=== PATIENT | female | born 1985 | race Caucasian/White ===

== ENCOUNTER 2022-06-16 14:00 | Inpatient (IN) | payer OTHER, SELFPAY ==
[2022-06-16] VITALS (8 sets, daily range): BP systolic 107–138; BP diastolic 61–79; PULSE 70–86; TEMP 36.5–37; O2SAT 97–98; BMI 26.5
[2022-06-16 13:37] LABS: Hematocrit 34.3 % (37-47); Hemoglobin 11.6 g/dL (12.0-15.0); Mean Corp Hgb Conc 33.8 g/dL (32-36); Mean Corpuscular Hgb 27.2 pg (27.0-32.0); Mean Corpuscular Volume 80.5 fL (81-99); Mean Platelet Vol. 9.7 fl (6.2-12.0); Platelet Count 295 K/mm3 (150-450); RBC Distribution Width CV 13.2 % (11.6-14.6); RBC Distribution Width SD 38.3 fl (35.1-43.9); Red Blood Count 4.26 M/mm3 (4.2-5.4); White Blood Count 9.6 K/mm3 (4.4-11.0)
[2022-06-16 13:42] LABS: ALB/GLOB Ratio 0.5 RATIO (0.9-2.4); AST(SGOT) 228 U/L (15-37); Alanine Aminotransfer ALT/SGPT 324 U/L (13-56); Albumin, Serum 2.4 g/dL (3.2-5.0); Alkaline Phosphatase 232 U/L (45-117); Anion Gap 5 (5-15); BUN 12 mg/dL (7-18); BUN/Creat Ratio 18.3 RATIO (10-20); Calcium,Total 8.7 mg/dL (8.5-10.1); Chloride 104 mmol/L (98-107); Color, Urine Yellow (Yellow); Creatinine, Serum 0.65 mg/dL (0.55-1.02); EST Glomerular Filtration Rate 109 mL/min (>60); Est Glom Filt Rate - Afr Amer 132 mL/min (>60); Estimated Creatinine Clearance 98.98 ml/min; Globulin 4.7 g/dL (2.2-4.2); Glucose 115 mg/dL (74-106); Glucose, Dipstick Normal (Normal); Ketone-Dipstick Negative (Negative); Leukocyte Esterase-Dipstick Negative /ul (Negative); Nitrite-Dipstick Negative (Negative); Occult Blood-Urine Negative /ul (Negative); Protein, Total 7.1 g/dL (6.4-8.2); Protein-Dipstick Negative (Negative); Sodium Level 133 mmol/L (136-145); Urine Bilirubin Dipstick Negative (Negative); Urine Clarity Clear (Clear); Urine Urobilinogen Normal (Normal)
--- NOTE | 2022-06-16 13:48 | US_ITS ---
INDICATION: SUSPECTED CHOLESTASIS EXAMINATION: Ultrasound US Biophysical Profile W/O nonstress TECHNIQUE: Transabdominal pelvic ultrasound was performed. COMPARISON: None. LMP: Unknown. Beta-hCG: Unknown. Provided EGA: None. FINDINGS: INTRAUTERINE GESTATION(s): Single. HEART MOTION is 150 bpm. AMNIOTIC FLUID INDEX (INGRID): 10 BIOPHYSICAL PROFILE (BPP): 88 -- Breathin/2. -- Movement: 2/2. -- Tone: 2/2. --INGRID: 2/2. PRESENTATION: Cephalic PLACENTA: Anterior. There is no placenta previa or abruption. US/Biophysical Prof W/O Non Stres IMPRESSION: Single live intrauterine with a biophysical profile of 8/8. Electronically Signed: Yoanna Ruby MD at 14:47 EST ,
--- NOTE | 2022-06-16 13:58 | HP.PCM.OB_ITS ---
HPI - General General Date of Admission: 06/16/22 Date of Service: 06/16/22 Chief Complaint: Itching all over and concerned she may have cholestasis of HPI Narrative NATALY BROWN, is a 37 F 2 para 1 who presents with the above. She denies any leakage of fluid, bleeding or contractions. The itching has gone on for the past 5 days including her palms and soles and all over her skin and back. She has been reading that cholestasis of can put baby at considerable risk and after consultation with her associate program manager and further consultations by the associate program manager they decided to come in here. The past 2 days she has been very fatigued and feels rather like she does when she has had a history of hypoglycemia. She feels lightheaded rather like she cannot stand up for any length of time and has to sit down and overall generally weak. She has been receiving care with a associate program manager identified as Alexandra Barkley. She has not had any blood work done with this but states it has so far been quite uneventful. Her last resulted in the delivery of a male infant 7 pounds 2 ounces on May 29, 2021. Patient also reports having had what she describes as the flu (no testing was done) very badly around 07 June with nausea and diarrhea but no emesis. Maternal Data Information Final CARLITOS: 07/06/22 Final CARLITOS Source: LMP PFSH PFSH no medical history Home Medications ascorbic acid (vitamin C) 500 mg tablet (Vitamin C) 500 mg PO DAILY 06/16/22 [History Last Taken 06/15/22 21:00] d-mannose 2 gm PO/SL DAILY Check with primary doctor 06/16/22 [History Last Taken 06/15/22 17:00] dandelion root 500 mg capsule 1 mg PO BID 06/16/22 [History Last Taken 06/15/22 21:00] lactobacillus comb no.10 20 billion cell capsule (Probiotic) 30,000 mmu cells PO DAILY 06/16/22 [History Last Taken 06/16/22 07:00] magnesium carb,citrate,oxide (Magnesium Complex) 300 mg PO DAILY 06/16/22 [History Last Taken 06/15/22 21:00] raspberry 1 ea PO BID 06/16/22 [History Last Taken 06/15/22 21:00] zinc acetate 25 mg (zinc) capsule 25 mg PO PRN PRN IMMUNITY 06/16/22 [History Last Taken 06/14/22 21:00] Allergy/AdvReac Type Severity Reaction Status Date / Time No Known Allergies Allergy Verified 06/16/22 13:23 no significant family history (Denies family history of inheritable diseases) no surgical history History 2 Elective abortions Hx Para 1 Spontaneous abortions Hx # Term Pregnancies 1 Ectopic pregnancies Hx # Pregnancies Multiple births # of living children 0 NST FHR Rate Baby A Baseline: 135 Variability:: Moderate Accelerations:: 15 x 15 Decelerations:: None NST Reactive:: Yes FHR Category:: Category I Uterine Activity:: Irregular contractions every 2 to 5 minutes not felt by patient ROS Constitutional Constitutional: Reports as per HPI and increased appetite ENT HEENT: Reports none Cardiovascular Cardiovascular: Reports none Respiratory/Chest Respiratory/Chest: Reports none Gastrointestinal Gastrointestinal: Reports diarrhea and nausea Genitourinary Genitourinary: Reports systems reviewed and no addt'l complaints, except as documented Musculoskeletal Musculoskeletal: Reports muscle weakness Integumentary Integumentary: Reports pruritus Neurologic Neurologic: Reports none Psychiatric Psychiatric: Reports none Endocrine Endocrinology: Reports none Hematologic/Lymphatic Hematologic/Lymphatic: Reports none Vital Signs Vital Signs Vital Signs: 06/16/22 13:17 06/16/22 13:17 Pulse Rate 82 Blood Pressure 120/79 BP Systolic 120 BP Diastolic 79 Weight Weight: 149 lb 14.629 oz Body Mass Index (BMI) 26.5 Physical Exam Const alert, oriented x3, no apparent distress and average body habitus General Appearance: cooperative Orientation / Consciousness: awake, oriented to person, oriented to place and oriented to time Exam Limitations: no limitations HEENT normocephalic Eyes PERRL and EOMs intact bilaterally Neck thyroid normal General: normal visual inspection Resp normal respiratory effort, normal air movement and clear to auscultation bilaterally Cardio regular rate, regular rhythm and no murmurs GI soft to palpation and non-tender GI Narrative: gravid Back/Spine thoracic and lumbar spine normal to inspection and no thoracic nor lumbar tenderness Extremity no calf tenderness and no pedal edema Skin no rashes or lesions noted Skin Narrative: Red straight lines on back suggestive of scratched skin Labs Labs Labs: Hct 34.3 % (37-47) L Hgb 11.6 g/dL (12.0-15.0) L Miscellaneous Test Pending Assessment & Plan (1) 37 weeks gestation of : COMMENT: 37+1 weeks. (2) Malaise: (3) Hyponatremia: (4) Elevated liver enzymes: (5) Generalized pruritus: COMMENT: Possible cholestasis of PLAN: Plan A biophysical profile and labs are being obtained, and the patient has been counseled that given her elevated liver enzymes I would highly recommend that she be monitored and delivered forth with. The nonstress test so far has been reactive and size appears to be average. I explained to her that unfortunately we could not prove cholestasis of for some time because it is a reference lab. The labs will be sent out all the same and a group beta strep test will be obtained to help guide management of labor. She will receive a liter of normal saline for the presence of mild hypokalemia. She was advised that for cholestasis of the recommendation is to deliver between 37 and 39 weeks if total bile acids are less than 100 mmol/L. We do not have access to this information at this short notice. She was agreeable to getting labs as usual for anyone who has not had any lab work done previously. Of note is that her platelet count is normal and there is no elevated bilirubin. The patient will discuss our recommendations with her spouse and let us know. Mode of induction will depend on her Werner score at this time.
[2022-06-16] MEDS: 0.9% Normal Saline 1,000 ML 500 ML IV (14:45)
[2022-06-16] MEDS: 0.9% Saline Lock 10 ML Syringe IV ×3 (14:51→14:54)
[2022-06-16 14:53] LABS: Amphetamine Urine VISTA NEGATIVE (<1000 ng/mL); Barbiturate Urine VISTA NEGATIVE (< 200 ng/mL); Benzodiazepine Urine VISTA NEGATIVE (< 200 ng/mL); Cocaine Urine VISTA NEGATIVE (< 300 ng/mL); Ecstacy Urine VISTA NEGATIVE (< 500 ng/mL); Methadone Urine VISTA NEGATIVE (< 300 ng/mL); PCP Urine VISTA NEGATIVE (< 25 ng/mL); THC Urine VISTA NEGATIVE (< 50 ng/mL); Vista UDS pH Range 5
[2022-06-16 15:53] LABS: Rubella IgG Reactive (Nonreactive); Syphilis Antibodies Non-reactive
[2022-06-16] MEDS: miSOPROStol 25 MCG TABLET VAGINAL (16:21)
[2022-06-16] MEDS: Lactated Ringers 1,000 ML 50 ML IV (16:21)
[2022-06-16 16:30] LABS: HIV - WCH Non-Reactive (Nonreactive); Hepatitis B Surface Antigen Non-Reactive (Nonreactive); Hepatitis C Antibody Non-Reactive (Nonreactive)
[2022-06-16 17:00] LABS: Chlamydia Trachomatis by PCR Negative (Negative); Neisserai gonorrhoeae by PCR Negative (Negative); Probe Check PASS; Sample Adequacy Control PASS; Specimen Processing Control PASS
[2022-06-16 17:01] LABS: Group B Strep DNA By PCR Negative (Negative); Internal Control PASS; Probe Check PASS; Specimen Processing Control PASS
--- NOTE | 2022-06-16 22:24 | PCM.PN.BLA ---
Progress Note LABOR PROGRESS NOTES Patient has now had 1 dose of cytotec 25mcg intravaginal with minimal increase in discomfort of ctxs from 0 to 2/10. Ctxs were up to q 2 minutes, currently spacing out. VE 3/50%/-3, with ctxs q 3-4'. FHR remains mostly category I with occasional times of decreased variability without decels. Likely sleep cycles. Discussed starting Pitocin per protocol with goal of stronger contractions and AROM once there is more effacement and head descent. Patient is agreeable.
[2022-06-16] MEDS: Oxytocin 15 Units/NS 250ml 15 UNITS/250 ML IV.SOLN 2 UNITS IV (23:03)
[2022-06-17] VITALS (18 sets, daily range): BP systolic 102–128; BP diastolic 58–88; PULSE 74–86; RESP 15–16; TEMP 36.5–37.3
--- NOTE | 2022-06-17 05:22 | PCM.NY.DEL ---
Delivery Attendance Service Date: 06/17/22 Physical Exam Apgars/Vital Signs/Weight: Weight: 149 lb 14.629 oz General Weight: 149 lb 14.629 oz
--- NOTE | 2022-06-17 05:24 | PCM.PN.BLA ---
Progress Note DELIVERY NOTE The patient continued to push spontaneously and very effectively and after a short second stage delivered a female in direct occiput anterior position over a second-degree midline tear. The infant was placed on her abdomen and per her request the cord was not cut for the next 20 minutes or so, while the patient felt the cord was still pulsating, long after it had stopped. The infant cried promptly with skin stimulation and had scores of 7 and 9. There were no cord loops or entanglements. There was no bleeding after the delivery and after about 10 minutes, and with fundal massage the placenta was delivered and placed in a bowl beside the patient. IV Pitocin was administered after delivery of the placenta. Low total blood loss was about 300 mL. The perineal tear area was cleansed with Betadine swabs and 10 mL of 1% plain lidocaine injected for local anesthesia before the tear was repaired with #3-0 Vicryl in standard fashion. Muscle involvement was minimal. The patient tolerated the delivery and repair extremely well. Sponge and needle counts were correct x2.
[2022-06-18 00:11] VITALS: BP 110/66; PULSE 76; RESP 14; TEMP 36.6
[2022-06-18 04:45] VITALS: BP 105/68; PULSE 80; RESP 18; TEMP 36.8
[2022-06-18 05:34] LABS: Hematocrit 32.1 % (37-47); Hemoglobin 10.7 g/dL (12.0-15.0); Mean Corp Hgb Conc 33.3 g/dL (32-36); Mean Corpuscular Hgb 26.6 pg (27.0-32.0); Mean Corpuscular Volume 79.9 fL (81-99); Mean Platelet Vol. 9.8 fl (6.2-12.0); Platelet Count 317 K/mm3 (150-450); RBC Distribution Width CV 13.4 % (11.6-14.6); RBC Distribution Width SD 38.6 fl (35.1-43.9); Red Blood Count 4.02 M/mm3 (4.2-5.4); White Blood Count 12.5 K/mm3 (4.4-11.0)
[2022-06-18 05:53] LABS: ALB/GLOB Ratio 0.5 RATIO (0.9-2.4); AST(SGOT) 186 U/L (15-37); Alanine Aminotransfer ALT/SGPT 309 U/L (13-56); Albumin, Serum 2.1 g/dL (3.2-5.0); Alkaline Phosphatase 213 U/L (45-117); Anion Gap 7 (5-15); BUN 12 mg/dL (7-18); BUN/Creat Ratio 25.1 RATIO (10-20); Calcium,Total 8.6 mg/dL (8.5-10.1); Chloride 105 mmol/L (98-107); Creatinine, Serum 0.48 mg/dL (0.55-1.02); EST Glomerular Filtration Rate 156 mL/min (>60); Est Glom Filt Rate - Afr Amer 189 mL/min (>60); Estimated Creatinine Clearance 134.03 ml/min; Globulin 4.2 g/dL (2.2-4.2); Glucose 97 mg/dL (74-106); Potassium 4.1 mmol/L (3.5-5.1); Protein, Total 6.3 g/dL (6.4-8.2); Sodium Level 137 mmol/L (136-145)
[2022-06-18 08:00] VITALS: BP 107/74; PULSE 87; RESP 14; TEMP 36.4
--- NOTE | 2022-06-18 10:28 | NURSING ---
reviewed s/s of when to call the Doctor or ui ux web developer with pt. - fever, increase in lochia, calf tenderness.- pt given teaching sheets on perineal care, breast care, and depression. Reviewed discharge instructions for - notified that if infants heart murmur persist at their follow up appointment in 2 days to follow up with cardiology. pt verbalizes understanding;
--- NOTE | 2022-06-18 13:03 | CM.ED ---
Addendum entered by Lorri Cadena 06/18/22 13:17: Of note, patient scored 0 on PHQ2. Lorri Cadena Addendum entered by Lorri Cadena 06/18/22 13:03: SW had updated KEVIN Miller and the white board in the nursing lunch area that patient was cleared for discharge. Lorri Surinder MELANY LINDER Original Note: SW Note Referral Source: ?WP court workerKEVIN Miller Referral Reason: History of Anxiety and Depression SW spoke to KEVIN Miller. Patient to be seen for history of anxiety and depression. RN reports no concerns regarding MOB, FOB and nb. SW introduced this science writer and role. MOB gave verbal consent to speak to her in the presence of the FOB. SW noted that MOB was receptive to nb?s whimpering and provided comfort to the nb. MOB also breast feed the nb during the assessment. MOB has good eye contact with the nb and was bright and reactive. Mom: Karla Pinzon PNC: Inseam Leveler Alexandra Barkley. MD Ledesma delivered nb. Baby: Juliette Varghese : 06/17/[birth year] Apgars: 7/9 Weight: 73 5 ounces Certified Recreational Therapist: Ariana MOB reports that breast feeding is going ?well?. MOB?s other children: 1 year old son, Leonardo Housing: MOB, FOB and older child and nb will be residing in their home in [place]. The family reports appropriate housing space. Transportation: MOB reports she has access to transportation and FOB said that they have 2 vehicles Supplies: MOB reports she has car seat, diapers, clothes and bassinette for the nb. MOB said that the nb?s aunts will be getting the nb more clothes. MOB said that they will get the nb a crib when she needs a crib. Supports: MOB reports that her mother will be ?around?. MOB said that her mother and father reside ? hours away. FOB said that they also have support through the women in the tenriism. SW encouraged MOB to reach out to friends and family for support. Education Level: MOB reports that she graduated and attended college for a ?couple of years? but did not obtain a degree. MOB reports that she has no learning issues. Agency Involvement: MOB reports no JFS, WIC, HMG, Counseling, Legal or CSB issues. 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 MARGARITO reports he will get 1 week off work and then have time off over the holiday. MARGARITO is father to MOB?s other child, Leonardo. FOB MH/AOD and DV History: MARGARITO reports that he has been 10 years sober from alcohol. Maternal MH History: MOB reports that she had depression after ?some major life changes? which occurred 10 years ago. MOB said that she went to counseling for a ?bit?. MOB said that she had depression for a ?handful of years?. MOB reports that patient has been put on medication but has not taken it regularly. MOB denied any history of SI/HI and denied any psych hospitalization. 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 SW asked what patient?s symptoms of PPD included and patient said that she felt ?emotions that she never felt before? and manager social services asked MOB what she felt. MOB said that she had felt ?anger? and manager social services asked what she did when she felt ?anger? and MOB said, ?I cried?. FOSugey voiced that they have been talking about marital counseling and they are open to counseling. MARGARITO reports that he feels that counseling would be helpful for the both of them. FOB voiced to MOB that if she needs any assistance or help to let him know. FOSugey voiced that he was interested in counseling to strengthen the marriage and voiced that he had been an ?uncle but I was never a parent before ?and he felt that the additional information would be helpful regarding parenting. MARGARITO said that as this is his second child, they are now he has more of a knowledge base. HAWA advised never to shake a baby, educated on depression and safe sleeping. MOB denied any drugs, alcohol or nicotine use. SW provided MOB with Post- Depression and Anxiety information for her review. No other issues or concerns voiced by staff. Plan: Home at discharge Lorri LINDER
--- NOTE | 2022-07-02 23:52 | PCM.NY.DEL ---
Delivery Attendance Service Date: 06/17/22 Physical Exam Apgars/Vital Signs/Weight: Weight: 149 lb 14.629 oz General Weight: 149 lb 14.629 oz Delivery Course DELIVERY NOTE ?? The patient continued to push spontaneously and very effectively and after a short second stage delivered a female infant in direct occiput anterior position over a second-degree midline tear.? The infant was placed on her abdomen and per her request the cord was not cut for the next 20 minutes or so, while the patient felt the cord was still pulsating, long after it had stopped.? The cried promptly with skin stimulation and had scores of 7 and 9.? There were no cord loops or entanglements. ? ? ? There was no bleeding after the delivery and after about 10 minutes, and with fundal massage the placenta was delivered and placed in a bowl beside the patient.? IV Pitocin was administered after delivery of the placenta.? Low total blood loss was about 300 mL.? The perineal tear area was cleansed with Betadine swabs and 10 mL of 1% plain lidocaine injected for local anesthesia before the tear was repaired with #3-0 Vicryl in standard fashion.? Muscle involvement was minimal.? The patient tolerated the delivery and repair extremely well.? Sponge and needle counts were correct x2.
--- NOTE | 2022-07-02 23:53 | PCM.NY.DEL ---
Delivery Attendance Service Date: 06/17/22 Course of Delivery Was resuscitation required: No Physical Exam Apgars/Vital Signs/Weight: Weight: 149 lb 14.629 oz General Weight: 149 lb 14.629 oz Delivery Course DELIVERY NOTE ?? The patient continued to push spontaneously and very effectively and after a short second stage delivered a female in direct occiput anterior position over a second-degree midline tear.? The infant was placed on her abdomen and per her request the cord was not cut for the next 20 minutes or so, while the patient felt the cord was still pulsating, long after it had stopped.? The infant cried promptly with skin stimulation and had scores of 7 and 9.? There were no cord loops or entanglements. ? ? ? There was no bleeding after the delivery and after about 10 minutes, and with fundal massage the placenta was delivered and placed in a bowl beside the patient.? IV Pitocin was administered after delivery of the placenta.? Low total blood loss was about 300 mL.? The perineal tear area was cleansed with Betadine swabs and 10 mL of 1% plain lidocaine injected for local anesthesia before the tear was repaired with #3-0 Vicryl in standard fashion.? Muscle involvement was minimal.? The patient tolerated the delivery and repair extremely well.? Sponge and needle counts were correct x2.
== END 2022-06-18 11:24 | disposition home or self-care (01) | DRG 806 ==
LOC: WPOUT 14:02 → WP 14:02
PROVIDERS: Admitting Provider Obstetrics & Gynecology Gynecology; Referring Provider Obstetrics & Gynecology Gynecology; Visit Provider Obstetrics & Gynecology Gynecology
DX: O70.1 Second degree perineal laceration during delivery (principal); Z37.0 Single live birth; E87.1 Hypo-osmolality and hyponatremia; E87.6 Hypokalemia; L29.9 Pruritus, unspecified; R74.8 Abnormal levels of other serum enzymes; Z3A.37 37 weeks gestation of pregnancy; O99.72 Diseases of the skin and subcutaneous tissue complicating childbirth; O99.284 Endocrine, nutritional and metabolic diseases complicating childbirth
CPT/HCPCS: 59025; 59050; 76819; 80053; 80307; 81002; 85027; 86703; 86762; 86780; 86803; 86850; 86900; 86901; 87081; 87340; 87491; 87591; 87653; 99218; J7030; J7120; A4216; G0378